=== PATIENT | female | born 1995 | race Caucasian/White ===

== ENCOUNTER 2017-01-20 10:52 | Emergency (ER) | payer SELFPAY ==
--- NOTE | 2017-01-20 11:46 | ER PHYSICIAN DOCUMENTATION ---
Physician Documentation [facility] Name:Maggie Caldwell Age:21 yrs Sex:Female :1995 Arrival Date:01/20/2017 Time:10:52 Bed5 Private MD: Rob Sher Disposition: 01/20 12:00 Chart complete. tl1 Disposition: 01/20/17 11:33 Discharged to Home/Self Care. Impression: Ankle Sprain. - Condition is Good. - Discharge Instructions: CRUTCH WALKING, Ankle - SPRAIN ANKLE (w/ x-ray). - Medical Reconciliation form form. - Follow up: Private Physician; When: 7 - 10 days; Reason: Recheck today's complaints, Continuance of care. - Problem is new. - Symptoms are unchanged. HPI: 11:00 This 21 yrs old Female presents to ER via Walk In with complaints of Ankle tl1 Injury - LEFT. 11:00 The patient presents with an injury. 5 days ago she had a hyperextension/inversion tl1 injury of her right foot and ankle while hiking in [place]. She was given an amada wrap and crutches after X-rays were reportedly normal.. She says the pain on the lateral ankle/foot inferior and anterior to the lateral malleolus is getting worse. . Historical: - Allergies: No known drug Allergies; - Home Meds: 1. None - Tetanus: < 10 years. - Ebola Screening: : Patient negative for fever greater than or equal to 101.5 degrees Fahrenheit, and additional compatible Ebola Virus Disease symptoms. Patient denies exposure to infectious person. Patient denies travel to an Ebola-affected area in the 21 days before illness onset. No symptoms or risks identified at this time. . - Immunization history: Flu Vaccine < 1 year. - Social history: Smoking status: Patient states was never smoker of tobacco. ROS: 11:10 MS/extremity: Positive for pain, tenderness. tl1 11:10 All other systems are negative. Exam: 11:10 Constitutional: This is a well developed, well nourished patient who is awake, alert, tl1 and in no acute distress. 11:10 Head/Face: Normocephalic, atraumatic. tl1 11:10 Musculoskeletal/extremity: Extremities: grossly normal except: Joints: the right ankle displays painful range of motion, tenderness. Vital Signs: 11:03 BP 125 / 66; Pulse 80; Resp 18; Temp 98(O); Pulse Ox 96% ; Weight 58.97 kg (R); Height bw2 5 ft. 5 in. (165.10 cm); Pain 5/10; 11:03 Body Mass Index 21.63 (58.97 kg, 165.10 cm) bw2 MDM: 11:13 Patient medically screened. tl1 11:15 Differential diagnosis: fracture, sprain. Data reviewed: vital signs, nurses notes, tl1 radiologic studies, plain films, and as a result, I will. Test interpretation: by ED physician or midlevel provider: plain radiologic studies. Counseling: I had a detailed discussion with the patient and/or guardian regarding: the historical points, exam findings, and any diagnostic results supporting the discharge/admit diagnosis, radiology results, the need for outpatient follow up, a orthopedic surgeon, to return to the emergency department if symptoms worsen or persist or if there are any questions or concerns that arise at home. ED course: walking cast shoe. 01/20 11:26 Order name: FOOT;[address] [place] [id number] [facility] 01/20 11:28 Order name: ANKLE; 3[place] [id number] [facility] 01/20 11:31 Order name: Walking Boot; Complete Time: 11:40 tl1 Dispensed Medications: No medications were administered Signatures: Rob Roth MD MD tl1 Valerie Hook bw2
--- NOTE | 2017-01-20 11:46 | ER NURSING DOCUMENTATION ---
Nurse's Notes [facility] Name:Maggie Caldwell Age:21 yrs Sex:Female :1995 Arrival Date:01/20/2017 Time:10:52 Bed5 Private MD: Diagnosis:Ankle Sprain Presentation: 01/20 10:56 Acuity: BENNETT 3 bw2 11:01 Presenting complaint: Patient states: she injured left foot 5 days ago. seeked medical 2 attention, was told her foot was sprained. pt states she continues to have increased pain. pt states she has been keeping foot elevated. Transition of care: patient was not received from another setting of care. 11:01 Method Of Arrival: Walk In 2 Triage Assessment: 11:02 General: Appears in no apparent distress, uncomfortable, Behavior is appropriate for bw2 age, cooperative. Pain: Complains of pain in right foot Pain began 5 days ago. Musculoskeletal: Swelling present in right foot. Historical: - Allergies: No known drug Allergies; - Home Meds: 1. None - Tetanus: < 10 years. - Ebola Screening: : Patient negative for fever greater than or equal to 101.5 degrees Fahrenheit, and additional compatible Ebola Virus Disease symptoms. Patient denies exposure to infectious person. Patient denies travel to an Ebola-affected area in the 21 days before illness onset. No symptoms or risks identified at this time. . - Immunization history: Flu Vaccine < 1 year. - Social history: Smoking status: Patient states was never smoker of tobacco. Screenin:04 Infectious Disease Risk None. Abuse screen: Denies threats or abuse. Nutritional bw2 screening: No deficits noted. Assessment: 11:04 See Triage Assessment done by same RN. bw2 Vital Signs: 11:03 BP 125 / 66; Pulse 80; Resp 18; Temp 98(O); Pulse Ox 96% ; Weight 58.97 kg (R); Height bw2 5 ft. 5 in. (165.10 cm); Pain 5/10; 11:03 Body Mass Index 21.63 (58.97 kg, 165.10 cm) bw2 ED Course: 10:54 Patient arrived in ED. ama 10:56 Valerie Hook is Primary Nurse. bw2 10:56 Triage completed. bw2 11:04 Valuables Remains with patient Patient has correct armband on for positive bw2 identification. Bed in low position. 11:13 Rob Roth MD is Attending Physician. tl1 11:18 Patient moved to radiology. ana 11:26 FOOT;3 [place] [id number] In Process Unspecified. EDMS 11:28 ANKLE; [address] [id number] In Process Unspecified. EDMS 11:28 Patient moved back from radiology. ana 11:40 Walking boot applied. bw2 Administered Medications: No medications were administered Outcome: 11:33 Discharge ordered by MD. tl1 11:45 Discharged to home ambulatory, with friend. bw2 11:45 Condition: good 11:45 Discharge Assessment: Patient awake, alert and oriented x 3. No cognitive and/or functional deficits noted. Patient verbalized understanding of disposition instructions. 11:45 Discharge instructions given to patient, Instructed on discharge instructions, follow up and referral plans. Demonstrated understanding of instructions. 11:45 Patient left the ED. bw2 0714 14:09 Discharge F/U Call: Unable to reach: no answer st Signatures: Dispatcher [employer] EDBrooklyn Bowles RN RN st Abbott, Yves Jurado, Reg Reg Rob Esquivel MD MD tl1 Gina Hookh bw2
--- NOTE | 2017-01-20 11:58 | RADIOLOGY REPORT ---
Views of the right ankle and foot demonstrate no displaced fracture or dislocation. The visualized joints appear unremarkable. IMPRESSION: No displaced injury is identified. If clinically indicated, further evaluation and/or follow-up may be of benefit. ADRIAN
== END 2017-01-20 11:46 | disposition home or self-care (01) ==
LOC: ER 10:52
DX: S96.911A Strain of unspecified muscle and tendon at ankle and foot level, right foot, initial encounter (principal); W18.49XA Other slipping, tripping and stumbling without falling, initial encounter; Y92.89 Other specified places as the place of occurrence of the external cause; Y93.01 Activity, walking, marching and hiking
CPT/HCPCS: 99283